=== PATIENT | female | born 1995 | race Caucasian/White ===

== ENCOUNTER 2016-10-03 03:43 | Emergency (ER) | payer MEDICAID ==
[~2016-10-03] VITALS: Ht 160 cm; Wt 99.5 kg
[~2016-10-03 03:43] MED LIST: NAPR-260 PO
[2016-10-03 03:48] VITALS: Ht 160 cm; Wt 99.5 kg
[2016-10-03] MEDS ORDERED: KETOROLAC 30 MG INJ IV STA (05:01)
[2016-10-03] MEDS ORDERED: ONDANSETRON 4 MG INJ IV STA (05:04)
[2016-10-03] MEDS ORDERED: morphine 4 MG/ML VIAL IV STA (05:04)
[2016-10-03] MEDS ORDERED: HYDR-906 PO (05:09)
[2016-10-03] MEDS ORDERED: CLIN-73 PO (05:09)
[2016-10-03] MEDS ORDERED: IBUP-1542 PO (05:09)
--- NOTE | 2016-10-03 05:09 | ERD ---
ER Documentation Chief Complaint Date/Time DATE: 10/03/16 TIME: 05:03 Chief Complaint left lower tooth, jaw, pain now to throat/ear x 3 days HPI 21-year-old female presents here in emergency department for complaints of lower left molar gum Pain started 3 days ago. Patient described the pain as throbbing pain, 8/10 scale, radiating to the jaw area in the throat area, it also is worse after eating. Patient did not take any medications to help with symptoms. Patient denies any fever or chills. Patient denies any ear discharge. Patient denies any problems with hearing. Patient is able to open and close the mouth without any restriction but with pain. She denies any trauma on affected area. ROS All systems reviewed and are negative except as per history of present illness. Medications Home Meds Active Scripts Hydrocodone/Acetaminophen ([place] 5-325 Tablet) 1 Each Tablet, 1 TAB PO Q6H Y for PAIN, #20 TAB Prov:STEFFANY YBARRA [employer]DER 10/03/16 Ibuprofen* (Motrin*) 600 Mg Tab, 600 MG PO Q6H Y for PAIN AND OR ELEVATED TEMP, #30 TAB Prov:STEFFANY YBARRA [employer]OLDER 10/03/16 Clindamycin Hcl* (Clindamycin Hcl*) 300 Mg Capsule, 300 MG PO TID for 10 Days, CAP Prov:STEFFANY YBARRA [employer] MOLDER 10/03/16 Naproxen* (Naprosyn*) 500 Mg Tablet, 500 MG PO BID Y for PAIN AND/OR INFLAMMATION, #30 TAB Prov:MELISSA NAYAK PA-C 04/26/16 Allergies Allergies: Coded Allergies: No Known Allergy (Unverified , 03/05/14) PMhx/Soc Medical and Surgical Hx: pt denies Medical Hx, pt denies Surgical Hx History of Surgery: No Anesthesia Reaction: No Hx Neurological Disorder: No Hx Respiratory Disorders: No Hx Cardiac Disorders: No Hx Psychiatric Problems: No Hx Miscellaneous Medical Probl: No Hx Alcohol Use: No Hx Substance Use: No Hx Tobacco Use: No Smoking Status: Never smoker FmHx Family History: No coronary disease, No diabetes, No other Physical Exam Vitals Vital Signs Date Time Temp Pulse Resp B/P Pulse Ox O2 Delivery O2 Flow Rate FiO2 10/03/16 05:40 98.8 79 20 142/91 100 Room Air 10/03/16 03:48 99.2 123 20 142/91 98 Physical Exam GENERAL: The patient is well developed and appropriate for usual state of health, in no apparent distress. HEENT: Atraumatic. Ears: Normal tympanic membrane, no erythema or bulging. No ear canal swelling. No ear discharge. Nose: normal nasal turbinates, no erythema or swelling. Normal nasal discharge. Throat: oropharynx clear. No tonsillar swelling or tonsillar exudates. Noted left third molar gumarea to be erythematous, with purulent discharge, tender on palpation. Noted lymphadenopathy, left submandibular lymphadenopathy. Able to open and close the mouth without any restriction. CHEST: Clear to auscultation bilaterally. There are no rales, wheezes or rhonchi. HEART: Regular rate and rhythm. No murmurs, clicks, rubs or gallops. No S3 or S4. ABDOMEN: Soft, nontender and nondistended. Good bowel sounds. No rebound or guarding. No gross peritonitis. No gross organomegaly or masses. No Simeon sign or McBurney point tenderness. BACK: No midline or flank tenderness. EXTREMITIES: Equal pulses bilaterally. There is no peripheral clubbing, cyanosis or edema. No focal swelling or erythema. Full range of motion. Grossly neurovascularly intact. NEURO: Alert and oriented. Cranial nerves 2-12 intact. Motor strength in all 4 extremities with 5/5 strength. Sensation grossly intact. Normal speech and gait. SKIN: There is no apparent rash or petechia. The skin is warm and dry. HEMATOLOGIC AND LYMPHATIC: There is no evidence of excessive bruising or lymphedema. No gross cervical, axillary, or inguinal lymphadenopathy. Results 24 hrs Current Medications Medications (Trade) Dose Ordered Sig/Ben Route PRN Reason Start Time Stop Time Status Last Admin Dose Admin Ketorolac Tromethamine 30 mg 30 mg ONCE STAT IV 10/03/16 05:01 10/03/16 05:03 DC 10/03/16 05:16 Clindamycin HCl/ Dextrose 50 ml @ 50 mls/hr ONCE IVPB 10/03/16 05:30 10/03/16 06:29 10/03/16 05:32 Sodium Chloride (NS) 1,000 ml @ 1,000 mls/hr Q1H ONCE IV 10/03/16 05:30 10/03/16 06:29 10/03/16 05:13 Morphine Sulfate (morphine) 4 mg ONCE STAT IV 10/03/16 05:04 10/03/16 05:06 DC 10/03/16 05:16 Ondansetron HCl (Zofran Inj) 4 mg ONCE STAT IV 10/03/16 05:04 10/03/16 05:06 DC 10/03/16 05:15 Procedures/MDM Medical decision making: Patient symptoms with tach is consistent with a gingival infection, possible early abscess, no symptoms of sepsis, patient does not have any fever. Patient appears well and is hemodynamically stable. Patient was given IV clindamycin, IV Toradol for pain, morphine and Zofran, patient was advised to return in 24-48 hours for reevaluation of symptoms, outpatient management is appropriate at this time, no risk factors, patient will be sent home with prescription of clindamycin, and appropriate, [place] for pain, is advised to see dentist within 1-2 days. Patient was advised to return to emergency department sooner if unable to open and close mouth, worsening swelling, uncontrolled high fever, any other worsening symptoms. Departure Diagnosis: Primary Impression: Blister of gingiva with infection Condition: Stable Patient Instructions: Dental Abscess, Understanding Healthy Teeth and Gums STEFFANY YBARRA NP Oct 03, 2016 05:09
[2016-10-03] MEDS ORDERED: CLINDAMYCIN 600 MG/D5W (PMX) 50 ML IVPB SCH (05:30)
[2016-10-03] MEDS ORDERED: SOD CHLORIDE 0.9% 1,000 ML IV ONE (05:30)
[2016-10-03 05:40] VITALS: BP 142/91; RESP 20; TEMP 98.8
[2016-10-03 06:40] VITALS: PULSE 81
== END 2016-10-03 06:40 | disposition home or self-care (01) ==
LOC: FTE 03:43
DX: K06.8 Other specified disorders of gingiva and edentulous alveolar ridge (principal); L08.9 Local infection of the skin and subcutaneous tissue, unspecified
CPT/HCPCS: 96374; 96375; J1885; J2270; J2405; J7030; Z7502; Z7610

== ENCOUNTER 2017-06-25 17:13 | Emergency (ER) | payer MEDICAID, OTHER ==
[~2017-06-25] VITALS: Ht 160 cm; Wt 90.0 kg
[~2017-06-25 17:13] MED LIST changes: +CLIN-73 PO; +HYDR-906 PO; +IBUP-1542 PO
[2017-06-25 17:18] VITALS: Ht 160 cm; Wt 90.0 kg
--- NOTE | 2017-06-25 17:56 | ERD ---
ER Documentation Chief Complaint Chief Complaint dizziness, ruq pain x1wk, denies n/v/d HPI This is a 22-year-old female presents with 1 week of symptoms. The patient is a smoker. She describes right sided and right upper quadrant pain that is slightly pleuritic with associated occasional shortness of breath. She also describes some mild abdominal discomfort that is not postprandial. No nausea or vomiting no fevers or chills, no recent travel, immobilization or family history of DVT. She does not take oral contraceptives. She is still smoking and smoke today. She denies any exertional chest pain or pressure. ROS All systems reviewed and are negative except as per history of present illness. Medications Home Meds Active Scripts Naproxen* (Naprosyn*) 500 Mg Tablet, 500 MG PO BID Y for PAIN AND/OR INFLAMMATION for 10 Days, #20 TAB Prov:LAQUITA BOWMAN MD 06/25/17 Hydrocodone/Acetaminophen ([place] 5-325 Tablet) 1 Each Tablet, 1 TAB PO Q6H Y for PAIN, #20 TAB Prov:STEFFANY YBARRA NP 10/03/16 Ibuprofen* (Motrin*) 600 Mg Tab, 600 MG PO Q6H Y for PAIN AND OR ELEVATED TEMP, #30 TAB Prov:STEFFANY YBARRA NP 10/03/16 Clindamycin Hcl* (Clindamycin Hcl*) 300 Mg Capsule, 300 MG PO TID for 10 Days, CAP Prov:STEFFANY YBARRA NP 10/03/16 Naproxen* (Naprosyn*) 500 Mg Tablet, 500 MG PO BID Y for PAIN AND/OR INFLAMMATION, #30 TAB Prov:MELISSA NAYAK PA-C 04/26/16 Allergies Allergies: Coded Allergies: No Known Allergy (Unverified , 03/05/14) PMhx/Soc History of Surgery: No Anesthesia Reaction: No Hx Neurological Disorder: No Hx Respiratory Disorders: No Hx Cardiac Disorders: No Hx Psychiatric Problems: No Hx Miscellaneous Medical Probl: No Hx Alcohol Use: No Hx Substance Use: No Hx Tobacco Use: No FmHx Family History: No coronary disease, No diabetes Physical Exam Vitals Vital Signs Date Time Temp Pulse Resp B/P Pulse Ox O2 Delivery O2 Flow Rate FiO2 06/25/17 17:18 99.0 102 18 137/79 99 Physical Exam General: Well developed, well nourished, no acute distress Head: Normocephalic, atraumatic. Eyes: Pupils equally reactive, EOM intact ENT: Moist mucous membranes Neck: Supple, no lymphadenopathy Respiratory: Lungs clear bilaterally, no distress Cardiovascular: RRR, no murmurs, rubs, or gallops Abdominal: Soft, slight reproducible right upper quadrant abdominal pain but negative Simeon sign, non-distended, no peritoneal signs : Deferred MSK: No edema, no unilateral swelling, 5/5 strength Neurologic: Alert and oriented, moving all extremities, normal speech, no focal weakness, no cerebellar signs Skin: No rash Psych: Normal mood Result Diagram: 06/25/17180606/25/171806 Results 24 hrs Laboratory Tests Test 06/25/17 18:07 White Blood Count 9.510^3/ul Red Blood Count 4.1610^6/ul Hemoglobin 10.4g/dl Hematocrit 33.2% Mean Corpuscular Volume 79.8fl Mean Corpuscular Hemoglobin 25.0pg Mean Corpuscular Hemoglobin Concent 31.3g/dl Red Cell Distribution Width 14.9% Platelet Count 42906^3/UL Mean Platelet Volume 9.9fl Neutrophils % 71.0% Lymphocytes % 16.6% Monocytes % 10.6% Eosinophils % 1.2% Basophils % 0.3% Nucleated Red Blood Cells % 0.0/100WBC Neutrophils # 6.810^3/ul Lymphocytes # 1.610^3/ul Monocytes # 1.010^3/ul Eosinophils # 0.110^3/ul Basophils # 0.010^3/ul Nucleated Red Blood Cells # 0.010^3/ul D-Dimer 3104.00ng/ml D-Dimer Comment Sodium Level 142mmol/L Potassium Level 3.6mmol/L Chloride Level 102mmol/L Carbon Dioxide Level 27mmol/L Anion Gap 17 Blood Urea Nitrogen 7mg/dl Creatinine 0.57mg/dl Glucose Level 94mg/dl Calcium Level 9.7mg/dl Total Bilirubin 0.2mg/dl Direct Bilirubin 0.00mg/dl Indirect Bilirubin 0.2mg/dl Aspartate Amino Transf (AST/SGOT) 27IU/L Alanine Aminotransferase (ALT/SGPT) 33IU/L Alkaline Phosphatase 71IU/L Total Protein 8.5g/dl Albumin 4.8g/dl Globulin 3.70g/dl Albumin/Globulin Ratio 1.29 Lipase 39U/L Current Medications Medications (Trade) Dose Ordered Sig/Ben Route PRN Reason Start Time Stop Time Status Last Admin Dose Admin Ibuprofen (Motrin) 800 mg ONCE ONCE PO 06/25/17 18:00 06/25/17 18:01 DC 06/25/17 18:13 IV Flush 10 ml 10 ml STK-MED ONCE .ROUTE 06/25/17 20:22 06/25/17 20:23 DC 06/25/17 20:34 Sodium Chloride 100 ml @ ud STK-MED ONCE .ROUTE 06/25/17 20:22 06/25/17 20:23 DC 06/25/17 20:34 Iohexol (Omnipaque) 100 ml @ ud STK-MED ONCE .ROUTE 06/25/17 20:22 06/25/17 20:23 DC 06/25/17 20:34 Iohexol (Omnipaque 350mg/ ml) 50 ml STK-MED ONCE .ROUTE 06/25/17 20:23 06/25/17 20:24 DC 06/25/17 20:34 Procedures/MDM EKG, MONITORS, & DIAGNOSTIC IMAGING: EKG: I reviewed and interpreted a 12-lead EKG. Rhythm: Normal sinus rhythm Ectopy: None Intervals: No abnormalities ST segments: No elevations or depressions T waves: No contiguous inversions Chest x-ray: I reviewed and interpreted a 1 view of the chest Mediastinum: No enlargement Cardiac silhouette: No cardiomegaly Airspace: Clear lung malin bilaterally without evidence of pneumothorax Bones: No evidence of fracture Gallbladder ultrasound: No acute process per radiologist CTPA: No evidence of pulmonary embolism per radiologist LAB INTERPRETATION: Positive d-dimer MEDICAL DECISION MAKING: The patient presents with multiple complaints that include pleuritic right- sided lower chest and upper abdominal pain as well as right upper quadrant abdominal pain. Her symptomatology is most likely consistent with pleurisy given her smoking. Low concern for pneumonia or pneumothorax. Additionally however the patient may have gallbladder issues including cholelithiasis. Low clinical concern for acute cholecystitis or choledocholithiasis. The patient also has slight tachycardia. While she does not have significant risk factors for pulmonary embolism she does have slight tachycardia and smoking history. A d-dimer would be appropriate. The patient qualifies for [facility] low risk criteria. No signs or symptoms concerning for dissection or acute coronary syndrome. Her workup will include evaluation for gallbladder issues as well as a rule out of pulmonary embolism with a d-dimer. ER COURSE: Motrin provided. The patient's laboratory testing revealed elevated d-dimer prompting CTPA which was negative for PE. Gallbladder ultrasound was unremarkable, laboratory testing was unremarkable. At this point to the patient's symptoms are likely secondary to pleurisy likely secondary to her smoking. I believe the patient can be safely discharged home with a short course of NSAIDs. I did discuss return precautions as well as follow-up with primary care physician. Smoking Cessation: I had a greater than 3 minute conversation with the patient regarding smoking cessation. We discussed multiple alternatives. I kept the patient and/or family informed of laboratory and diagnostic imaging results throughout the emergency room course. DISPOSITION PLAN: We discussed follow up with the patient's primary care doctor within 24 to 48 hours as needed. We also discussed return to the emergency room for worsening symptoms or worsening condition. Outpatient referral: [None required] Discharge Medications: Naprosyn Departure Diagnosis: Primary Impression: Chest pain Chest pain type: unspecified Qualified Code: R07.9 - Chest pain, unspecified type Additional Impression: Pleurisy Condition: LAQUITA Meza MD Jun 25, 2017 17:56
[2017-06-25] MEDS ORDERED: IBUPROFEN 800 MG TAB PO ONE (18:00)
[2017-06-25 18:19] LABS: BASOPHILS % 0.3 % (0.0-2.0); EOSINOPHILS # 0.1 10^3/ul (0.0-0.5); EOSINOPHILS % 1.2 % (0.0-7.0); HEMATOCRIT 33.2 % (37.0-47.0); HEMOGLOBIN 10.4 g/dl (12.0-16.0); LYMPHOCYTES # 1.6 10^3/ul (0.8-2.9); LYMPHOCYTES % 16.6 % (15.0-51.0); MEAN CORPUSCULAR HGB CONC 31.3 g/dl (32.0-37.0); MEAN CORPUSCULAR VOLUME 79.8 fl (82.0-101.0); MEAN PLATELET VOLUME 9.9 fl (7.4-10.4); MONOCYTES % 10.6 % (0.0-11.0); NEUTROPHIL # 6.8 10^3/ul (1.6-7.5); PLATELET COUNT 550 10^3/UL (140-415); RED BLOOD COUNT 4.16 10^6/ul (4.20-5.40); RED CELL DISTRIBUTION WIDTH 14.9 % (11.5-14.5); WHITE BLOOD COUNT 9.5 10^3/ul (4.8-10.8)
[2017-06-25 18:37] LABS: ALBUMIN 4.8 g/dl (3.3-4.9); ALBUMIN/GLOBULIN RATIO 1.29; BILIRUBIN,INDIRECT 0.2 mg/dl (0-1.1); BILIRUBIN,TOTAL 0.2 mg/dl (0.2-1.3); CALCIUM 9.7 mg/dl (8.4-10.2); CREATININE 0.57 mg/dl (0.44-1.00); POTASSIUM 3.6 mmol/L (3.5-5.1); TOTAL PROTEIN 8.5 g/dl (6.1-8.1)
--- NOTE | 2017-06-25 19:27 | RADRPT ---
PROCEDURE: XR Chest. CLINICAL INDICATION: chest pain TECHNIQUE: Single frontal view of the chest was obtained COMPARISON: CR CHEST 04/26/2016 FINDINGS: The heart and mediastinum are within normal limits. The lungs are clear. There is no pleural effusion or pneumothorax. RPTAT: AA IMPRESSION: No acute disease. .Leonel Woodard MD, MD Date Time Electronically viewed and signed by .Leonel Woodard MD, on 06/25/2017 19:27 .S/
[2017-06-25] MEDS ORDERED: IOHEXOL 100 ML ONE (20:22)
[2017-06-25] MEDS ORDERED: SOD CHLORIDE 0.9% 100 ML ONE (20:22)
[2017-06-25] MEDS ORDERED: IOHEXOL 350MG/ML 50 ML BTL ONE (20:23)
--- NOTE | 2017-06-25 21:27 | RADRPT ---
PROCEDURE: CT angiogram chest. CLINICAL INDICATION: Shortness of breath. TECHNIQUE: CT angiogram of the chest was performed utilizing axial images with reconstructions in sagittal and coronal planes following the intravenous administration of 100 cc Omnipaque 350 contras t. The administered radiation dose is CTDI 17.6 mGy, DLP there is 47 mGy-cm. One or more of the foll owing dose reduction techniques were used: automated exposure control, adjustment of the mA and/or k V according to patient size and/or use of iterative reconstruction technique. 3D and / or MIPS refo rmats were performed. COMPARISON: No pertinent prior examinations are submitted for comparison. FINDINGS: Pulmonary angiogram: The pulmonary arteries are adequately opacified to the level of the segmental pulmonary artery branches. There is minimal respiratory motion artifact. There is no evidence of p ulmonary embolus. Aortogram: There is no evidence of aortic dissection or aneurysm. Major branches of the aorta are patent. Chest: The lungs are clear. No pleural or pericardial effusions are seen. The tracheobronchial tree is un remarkable. The heart is normal in size. No pericardial effusion is seen. There is no evidence of mediastinal or hilar adenopathy. Visualized Upper abdomen: Hepatic steatosis is noted. Osseous structures: Unremarkable. IMPRESSION: No evidence of pulmonary embolus. RPTAT: HIKT .Kale Whittaker MD, Date Time Electronically viewed and signed by .Kale Whittaker MD, on 06/25/2017 21:26 .T/
--- NOTE | 2017-06-25 21:50 | RADRPT ---
PROCEDURE: US abdomen right upper quadrant CLINICAL INDICATION: Right upper quadrant abdominal pain. TECHNIQUE: Sims scale and color Doppler ultrasound of the right upper quadrant of the abdomen was p erformed. COMPARISON: None available. FINDINGS: Pancreas: Visualized portions are unremarkable. Liver: Normal in size and echogenicity with no focal hepatic lesion. Hepatopedal flow in the main po rtal vein. Gallbladder: No cholelithiasis, gallbladder wall thickening, or pericholecystic fluid. Common bile duct: 3.1 mm in diameter. Right Kidney: 10.9 cm in length. No nephrolithiasis, hydronephrosis, or mass. Visualized aorta and IVC: Unremarkable. Ascites: None. IMPRESSION: 1. Unremarkable examination. A source for the patient's symptoms is not identified. RPTAT: HLBP .Jose Kevin MD, MD Date Time Electronically viewed and signed by .Jose Kevin MD, MD on 06/25/2017 21:50 .P/
[2017-06-25] MEDS ORDERED: NAPR-260 PO (22:17)
[2017-06-25] MEDS ORDERED: ALBU18HF INHALATION (22:28)
[2017-06-25 22:31] VITALS: BP 137/58; PULSE 99; RESP 20
== END 2017-06-25 22:33 | disposition home or self-care (01) ==
LOC: FTE 17:13
DX: R07.9 Chest pain, unspecified (principal); R09.1 Pleurisy; F17.210 Nicotine dependence, cigarettes, uncomplicated
CPT/HCPCS: 36415; 71010; 71275; 76705; 80053; 83690; 85025; 85378; 93005; Q9967; Z7502; Z7610